=== PATIENT | female | born 2000 | race Two or more races ===

== ENCOUNTER 2023-07-19 10:38 | Outpatient (CLI) | payer OTHER | END 2023-07-19 12:24 | disposition home or self-care (01) | LOC: PRENATAL 10:38 | PROVIDERS: ATTEND Obstetrics & Gynecology Maternal & Fetal Medicine | DX: O36.80X0 Pregnancy with inconclusive fetal viability, not applicable or unspecified (principal); Z36.82 Encounter for antenatal screening for nuchal translucency; O34.00 Maternal care for unspecified congenital malformation of uterus, unspecified trimester; Z36.9 Encounter for antenatal screening, unspecified; Z3A.11 11 weeks gestation of pregnancy ==

== ENCOUNTER → 2023-09-16 08:09 | Outpatient (CLI) | payer OTHER | END | disposition home or self-care (01) | LOC: PRENATAL 08:09 | PROVIDERS: ATTEND Obstetrics & Gynecology Maternal & Fetal Medicine | DX: O35.3XX0 Maternal care for (suspected) damage to fetus from viral disease in mother, not applicable or unspecified (principal); O44.00 Complete placenta previa NOS or without hemorrhage, unspecified trimester; O34.00 Maternal care for unspecified congenital malformation of uterus, unspecified trimester; Z3A.19 19 weeks gestation of pregnancy ==

== ENCOUNTER 2023-12-03 10:33 | Emergency (ER) | payer OTHER ==
[~2023-12-03] VITALS: Ht 162.6 cm; Wt 60.3 kg
[2023-12-03] MEDS ORDERED: CHILDREN'S ASPI81 MG PO (10:42)
[2023-12-03] MEDS ORDERED: PRENA1 TRUE CO1 EACH PO (10:42)
== END 2023-12-03 12:34 | disposition home or self-care (01) ==
LOC: ER 10:34
DX: O98.513 Other viral diseases complicating pregnancy, third trimester (principal); B34.9 Viral infection, unspecified; Z3A.31 31 weeks gestation of pregnancy; Z20.822 Contact with and (suspected) exposure to COVID-19

== ENCOUNTER 2023-12-10 07:14 | Outpatient (CLI) | payer OTHER ==
[~2023-12-10 07:14] MED LIST: CHILDREN'S ASPI81 MG PO; PRENA1 TRUE CO1 EACH PO
[2023-12-10 08:00] LABS: HEMATOCRIT 37.2 % (36.0-45.00); MEAN CELL VOLUME 78.3 fL (80.00-100.00); MEAN CORPUSCULAR HEMOGLOBIN 25.2 pg (27.00-32.0); MEAN CORPUSCULAR HGB CONC 32.2 g/dl (32.0-36.0); PLATELET COUNT 307 K/uL (150-450); RED BLOOD COUNT 4.75 M/uL (4.00-6.00); RED CELL DISTRIBUTION WIDTH 15.1 % (11.5-14.5); URINE APPEARANCE Cloudy; URINE BILIRRUBIN Negative (NEGATIVE); URINE BLOOD Negative; URINE COLOR Yellow; URINE GLUCOSE Negative (NEGATIVE); URINE LEUKOCYTE Large; URINE NITRATE Negative; URINE PROTEIN Negative (NEGATIVE); URINE UROBILINOGEN 0.2 E.U./dl
[2023-12-10 08:02] LABS: URINE BACTERIA 682.7 uL (0.0-1933); URINE EPITHELIAL CELLS 57.9 uL (0.0-38.8); URINE RBC 3.8 uL (0.0-20.8); URINE WBC 71.2 uL (0.0-23.2)
[2023-12-10 08:40] LABS: ALBUMIN 2.8 gm/dL (3.4-5.0); BILIRUBIN TOTAL 0.2 mg/dL (0.3-1.2); CALCIUM 9.3 mg/dL (8.5-10.1); CREATININE SERUM 0.47 mg/dL (0.55-1.02); GFR 164.21; GLOBULINA 3.4 G/DL (2.4-3.5); POTASSIUM 4.88 mEq/L (3.5-5.1); TOTAL PROTEIN 6.2 gm/dL (6.4-8.2)
[2023-12-10] MEDS ORDERED: CEFADROXIL500 MG PO (15:59)
== END 2023-12-10 16:17 | disposition home or self-care (01) ==
LOC: OBS/DEL 07:14
PROVIDERS: ATTEND Specialist
DX: O23.43 Unspecified infection of urinary tract in pregnancy, third trimester (principal); N39.0 Urinary tract infection, site not specified; Z3A.32 32 weeks gestation of pregnancy; O09.613 Supervision of young primigravida, third trimester

== ENCOUNTER 2024-01-06 09:39 | Outpatient (CLI) | payer OTHER ==
[~2024-01-06 09:39] MED LIST changes: +CEFADROXIL500 MG PO
== END 2024-01-06 09:40 | disposition home or self-care (01) ==
LOC: PRENATAL 09:39
PROVIDERS: ATTEND Obstetrics & Gynecology Maternal & Fetal Medicine
DX: O26.849 Uterine size-date discrepancy, unspecified trimester (principal); O36.8199 Decreased fetal movements, unspecified trimester, other fetus; O28.3 Abnormal ultrasonic finding on antenatal screening of mother; O36.5990 Maternal care for other known or suspected poor fetal growth, unspecified trimester, not applicable or unspecified; Z3A.35 35 weeks gestation of pregnancy

== ENCOUNTER 2024-01-29 13:00 | Inpatient (IN) | payer OTHER ==
[~2024-01-29] VITALS: Ht 165.1 cm; Wt 64.9 kg
[2024-01-30] MEDS ORDERED: RINGERS SOLUTION,LACTATED 1,000 ML IV SCH (05:30)
[2024-01-30] MEDS ORDERED: AMPICILLIN SODIUM 2,000 MG VIAL IV ONE (05:45)
[2024-01-30 06:41] LABS: PH,URINE 6.5 (5.0-8.0); URINE APPEARANCE Clear; URINE BILIRRUBIN Negative (NEGATIVE); URINE BLOOD Negative; URINE COLOR Yellow; URINE GLUCOSE Negative (NEGATIVE); URINE LEUKOCYTE Negative; URINE NITRATE Negative; URINE PROTEIN Negative (NEGATIVE); URINE UROBILINOGEN 0.2 E.U./dl
[2024-01-30 06:50] LABS: URINE BACTERIA 42.7 uL (0.0-1933); URINE EPITHELIAL CELLS 6.4 uL (0.0-38.8); URINE WBC 2.1 uL (0.0-23.2)
[2024-01-30 06:54] LABS: URINE RBC 0.1 uL (0.0-20.8)
[2024-01-30] MEDS ORDERED: OXYTOCIN 20 UNITS/500ML RL PIGGYBAG IV ONE (06:55)
[2024-01-30] MEDS ORDERED: OXYTOCIN 500 ML IV SCH (07:00)
[2024-01-30 07:31] LABS: HEMATOCRIT 34.3 % (36.0-45.00); HEMOGLOBIN 11.1 g/dL (12.0-15.00); MEAN CORPUSCULAR HEMOGLOBIN 24.4 pg (27.00-32.0); MEAN CORPUSCULAR HGB CONC 32.5 g/dl (32.0-36.0); PLATELET COUNT 223 K/uL (150-450); RED BLOOD COUNT 4.57 M/uL (4.00-6.00); RED CELL DISTRIBUTION WIDTH 15.8 % (11.5-14.5)
[2024-01-30 07:40] LABS: INR < 0.93; PARTIAL THROMBOPLASTIN TIME 24.8 SECONDS (22.0-34.0); PROTHROMBIN TIME 9.7 SECONDS (9.0-11.5)
[2024-01-30] MEDS ORDERED: MEPERIDINE HCL/PF 50 MG/ML VIAL IV STA (08:03)
[2024-01-30] MEDS ORDERED: PROMETHAZINE HCL 25 MG/ML AMPUL IV STA (08:04)
[2024-01-30] MEDS ORDERED: ERYTHROMYCIN BASE 1 GM TUBE OP ONE ×2 (08:08→09:15)
[2024-01-30] MEDS ORDERED: OXYTOCIN 20 UNITS/1000ML RL PIGGYBAG IV ONE ×2 (08:08→09:15)
[2024-01-30] MEDS ORDERED: CHLORHEXIDINE GLUCONATE 120 ML BOTTLE TOP ONE ×2 (08:08→09:15)
[2024-01-30] MEDS ORDERED: AMPICILLIN SODIUM 1,000 MG VIAL IV SCH (09:00)
[2024-01-30] MEDS ORDERED: ACETAMINOPHEN 325 MG TABLET PO PRN (09:15)
[2024-01-30] MEDS ORDERED: OxyCODONE HCL/APAP UD (PERCOCET) PO PRN (09:15)
[2024-01-30] MEDS ORDERED: LIDOCAINE HCL 1% 200MG/20ML VIAL IJ ONE (09:15)
[2024-01-30] MEDS ORDERED: BENZOCAINE/MENTHOL 90 ML BOTTLE TOP SCH (13:00)
[2024-01-30] MEDS ORDERED: HYDROCORTISONE 2.5% 30 GM TUBE RECTAL SCH (13:00)
[2024-01-31 02:20] LABS: HEMATOCRIT 34.8 % (36.0-45.00); HEMOGLOBIN 11.4 g/dL (12.0-15.00); MEAN CELL VOLUME 74.6 fL (80.00-100.00); MEAN CORPUSCULAR HEMOGLOBIN 24.5 pg (27.00-32.0); MEAN CORPUSCULAR HGB CONC 32.8 g/dl (32.0-36.0); PLATELET COUNT 246 K/uL (150-450); RED BLOOD COUNT 4.66 M/uL (4.00-6.00); RED CELL DISTRIBUTION WIDTH 15.6 % (11.5-14.5)
== END 2024-02-02 18:09 | disposition home or self-care (01) | DRG 807 ==
LOC: LDR 01-30 05:27 → OB/GYN 01-30 05:27 → LDR 01-30 08:21 → OB/GYN 01-30 10:07 → SURG 02-05 13:00
PROVIDERS: ADMIT Specialist; ATTEND Specialist
PROC: 10E0XZZ Delivery of Products of Conception, External Approach (ICD-10-PCS; principal; 2024-01-30)
PROC: 0W8NXZZ Division of Female Perineum, External Approach (ICD-10-PCS; 2024-01-30)
PROC: 4A1HXCZ Monitoring of Products of Conception, Cardiac Rate, External Approach (ICD-10-PCS; 2024-01-30)
DX: O99.824 Streptococcus B carrier state complicating childbirth (principal); Z37.0 Single live birth; Z3A.39 39 weeks gestation of pregnancy; Z20.822 Contact with and (suspected) exposure to COVID-19